=== PATIENT | female | born 1990 | race Two or more races ===

== ENCOUNTER 2016-05-25 | Emergency (ER) | payer OTHER | END 2016-05-25 14:32 | disposition home or self-care (01) | DX: H66.006 Acute suppurative otitis media without spontaneous rupture of ear drum, recurrent, bilateral (principal) ==

== ENCOUNTER 2017-06-22 08:00 | Outpatient (CLI) | payer OTHER ==
[2017-06-22 13:10] LABS: BASOPHILS % (AUTO) 0.6 %; EOSINOPHILS # (AUTO) 0.1 10^3/uL (0.0-0.7); EOSINOPHILS % (AUTO) 1.5 %; HGB - HEMOGLOBIN 13.6 g/dL (12.0-16.0); LYMPHOCYTES # (AUTO) 1.9 10^3/uL (1.5-3.5); LYMPHOCYTES % (AUTO) 36.7 %; MEAN CORPUSCULAR HEMOGLOBIN 29.8 pg (27.0-31.0); MEAN CORPUSCULAR HGB CONC 34.3 g/dL (32.0-36.0); MEAN CORPUSCULAR VOLUME 86.9 fL (81.0-99.0); MEAN PLATELET VOLUME 7.7 fL (7.9-10.8); MONOCYTES # (AUTO) 0.3 10^3/uL (0.0-1.0); MONOCYTES % (AUTO) 6.4 %; NEUTROPHILS # (AUTO) 2.8 10^3/uL (1.5-6.6); NEUTROPHILS % (AUTO) 54.8 %; PLT - PLATELET COUNT 274 10^3/uL (130-450); RED BLOOD COUNT 4.56 10^6/uL (4.20-5.40); RED CELL DISTRIBUTION WIDTH 13.1 % (12.0-15.0); WHITE BLOOD COUNT 5.1 x10^3/uL (4.8-10.8)
[2017-06-22 13:24] LABS: ALBUMIN 4.5 g/dL (3.2-5.5); ALBUMIN/GLOBULIN RATIO 1.7 (1.0-2.2); ALKALINE PHOSPHATASE 51 IU/L (42-121); ALT ALANINE AMINOTRANSFERASE 13 IU/L (10-60); AST ASPARTATE AMINOTRANSFERASE 17 IU/L (10-42); BILIRUBIN,TOTAL 0.8 mg/dL (0.2-1.0); BUN - BLOOD UREA NITROGEN 13 mg/dL (6-20); CALCIUM 8.8 mg/dL (8.5-10.3); CARBON DIOXIDE - CO2 25 mmol/L (21-32); CHLORIDE 104 mmol/L (101-111); CHOL/HDL RATIO 2.4 (<4.4); CHOLESTEROL 159 mg/dL; CREATININE 0.4 mg/dL (0.4-1.0); GFR - MDRD 190 (>89); GLUCOSE 93 mg/dL (70-100); HDL CHOLESTEROL 65 mg/dL; LDL CHOLESTEROL,CALCULATED 80 mg/dL; LDL/HDL RATIO 1.2 (<4.4); SODIUM 135 mmol/L (135-145); TOTAL PROTEIN 7.2 g/dL (6.7-8.2); VLDL CHOLESTEROL 14 mg/dL
== END 2017-06-22 08:01 | disposition home or self-care (01) ==
LOC: LAB.WCP 08:00
PROVIDERS: ATTEND Family Medicine
DX: Z00.00 Encounter for general adult medical examination without abnormal findings (principal)
CPT/HCPCS: 36415; 80050; 80061; 83721

== ENCOUNTER 2017-08-30 15:37 | Emergency (ER) | payer OTHER ==
[2017-08-30 16:41] VITALS: BP 107/76
[2017-08-30 16:43] LABS: BASOPHILS % (AUTO) 0.9 %; EOSINOPHILS # (AUTO) 0.1 10^3/uL (0.0-0.7); HGB - HEMOGLOBIN 13.1 g/dL (12.0-16.0); LYMPHOCYTES # (AUTO) 2.5 10^3/uL (1.5-3.5); LYMPHOCYTES % (AUTO) 47.7 %; MEAN CORPUSCULAR HEMOGLOBIN 29.2 pg (27.0-31.0); MEAN CORPUSCULAR HGB CONC 33.3 g/dL (32.0-36.0); MEAN CORPUSCULAR VOLUME 87.8 fL (81.0-99.0); MEAN PLATELET VOLUME 6.9 fL (7.9-10.8); MONOCYTES # (AUTO) 0.3 10^3/uL (0.0-1.0); MONOCYTES % (AUTO) 5.1 %; NEUTROPHILS # (AUTO) 2.3 10^3/uL (1.5-6.6); NEUTROPHILS % (AUTO) 44.3 %; PLT - PLATELET COUNT 330 10^3/uL (130-450); RED BLOOD COUNT 4.46 10^6/uL (4.20-5.40); RED CELL DISTRIBUTION WIDTH 13.2 % (12.0-15.0); WHITE BLOOD COUNT 5.3 x10^3/uL (4.8-10.8)
[2017-08-30 16:53] LABS: CALCIUM 8.9 mg/dL (8.5-10.3); CREATININE 0.5 mg/dL (0.4-1.0)
[2017-08-30 17:17] LABS: HCG,QUALITATIVE BLOOD NEGATIVE
--- NOTE | 2017-08-30 19:16 | ED Physician Documentation ---
History of Present Illness - Stated complaint Stated Complaint: ANXIETY - Chief complaint Chief Complaint: General - Additonal information Additional information: hx from pt 27 f healthy denies preg no new meds - on an antidepressent name not known but not new no supplements no recent illness this AM developed rapid palp soa and near syncope lasted 1-2 hr and spont resolved, she drank some soda and that seems to have helped, had gestational DM but not otherwise diabetic no LUND no CP no Ap no VD no leg swelling Review of Systems Constitutional: denies: Fever, Chills Cardiac: reports: Palpitations. denies: Chest pain / pressure Respiratory: reports: Dyspnea GI: denies: Abdominal Pain : denies: Now EGA Neurologic: reports: Generalized weakness. denies: Focal weakness, Numbness, Headache Endocrine: denies: Easy bruising / bleeding PD PAST MEDICAL HISTORY - Past Medical History Past Medical History: No - Past Surgical History Past Surgical History: No - Present Medications Home Medications: Ambulatory Orders Medication Instructions Recorded Confirmed Home Medications Unobtainable 08/30/17 08/30/17 [HOME MEDICATIONS UNOBTAINABLE] - Allergies Allergies/Adverse Reactions: Allergies Allergy/AdvReac Type Severity Reaction Status Date / Time No Known Drug Allergies Allergy Verified 08/30/17 15:49 - Social History Does the pt smoke?: No Smoking Status: Never smoker Does the pt drink ETOH?: No Does the pt have substance abuse?: No - Immunizations Immunizations are current?: Yes PD ED PE NORMAL - Vitals Vital signs reviewed: Yes - General General: Alert and oriented X 3 - HEENT HEENT: PERRL - Neck Neck: Supple, no meningeal sign, Thyroid normal - Cardiac Cardiac: RRR - Respiratory Respiratory: No respiratory distress, Clear bilaterally - Abdomen Abdomen: Soft, Non tender - Derm Derm: Normal color - Extremities Extremities: No edema, No calf tenderness / cord - Neuro Neuro: Alert and oriented X 3 Eye Opening: Spontaneous Motor: Obeys Commands Verbal: Oriented GCS Score: 15 Results - Vitals Vitals: Vital Signs - 24 hr 08/30/17 08/30/17 08/30/17 15:46 16:06 16:41 Temperature 36.7 C Heart Rate 80 91 89 Respiratory 14 16 18 Rate Blood Pressure 112/70 106/73 107/76 O2 Saturation 99 100 100 Oxygen O2 Source Room air - EKG (time done) 1640 Rate: Rate (enter#) (84) Rhythm: NSR [place]lin: Normal Intervals: Normal SD QRS: Normal Ischemia: Other (no delta wave) - Labs Labs: Laboratory Tests 08/30/17 08/30/17 08/30/17 16:38 16:38 16:38 WBC 5.3 RBC 4.46 Hgb 13.1 Hct 39.2 MCV 87.8 MCH 29.2 MCHC 33.3 RDW 13.2 Plt Count 330 MPV 6.9 L Neut # 2.3 Lymph # 2.5 [place] # 0.3 Eos # 0.1 Baso # 0.0 Absolute Nucleated RBC 0.00 Nucleated RBC % 0.0 Sodium 136 Potassium 3.3 L Chloride 101 Carbon Dioxide 26 Anion Gap 9.0 BUN 8 Creatinine 0.5 Estimated GFR (MDRD) 147 Glucose 104 H Calcium 8.9 TSH 1.95 Serum HCG, Qual 08/30/17 16:38 WBC RBC Hgb Hct MCV MCH MCHC RDW Plt Count MPV Neut # Lymph # [place] # Eos # Baso # Absolute Nucleated RBC Nucleated RBC % Sodium Potassium Chloride Carbon Dioxide Anion Gap BUN Creatinine Estimated GFR (MDRD) Glucose Calcium TSH Serum HCG, Qual NEGATIVE PD MEDICAL DECISION MAKING - ED course ED course: sx resolved [employer] VS nl exam nl EKG nl labs nl cannot PERC pt as she does not know her meds but non smoker no leg swelling not tachy tachypneic or hypoxic - went to ask pt about travel but she has left AMA ( per nurse was impatient about the wait) assuming no recent travel and continued nl VS would have re-eal pt and if still feeling better plan was to dc to fup PMD to get set up for a holter monitor, also would have asked pt to fnd her home meds and then contact her PMD to see if side effects would include palp , and would have advised pt to avoid stimulants such as caffeine etc but pts nurse reports she became impatient and left AMA Departure - Departure Disposition: 07 Against Medical Advice Clinical Impression: Palpitations Condition: Fair Discharge Date/Time: 08/30/17 18:22
== END 2017-08-30 18:22 | disposition left against medical advice (07) ==
LOC: ED 15:37
DX: R00.2 Palpitations (principal); Z53.29 Procedure and treatment not carried out because of patient's decision for other reasons
CPT/HCPCS: 36415; 80048; 84443; 84703; 85025; 93005; 99283; 99284